=== PATIENT | male | born 1965 | race African-American/Black ===

== ENCOUNTER 2019-02-20 13:03 | Emergency (ER) | payer MEDICAID ==
[~2019-02-20] VITALS: Ht 185.4 cm; Wt 116.0 kg
[~2019-02-20 13:03] MED LIST: ALLO100T PO; LOSA100T14 PO; NAPR-681 PO; P20 PO
[2019-02-20 14:13] LABS: BASOPHILS % 0.5 % (0.0-2.0); EOSINOPHILS % 2.9 % (0.0-5.0); HEMATOCRIT. 41.3 % (42.0-52.0); HEMOGLOBIN. 14.3 g/dL (14.0-18.0); LYMPHOCYTES % 24.5 % (20.0-50.0); MEAN CORPUSCULAR HEMOGLOBIN 28.3 pg (28.0-32.0); MEAN CORPUSCULAR VOLUME 81.8 fL (80.0-94.0); MEAN PLATELET VOLUME 9.5 fl (7.4-10.4); MONOCYTES % 14.7 % (2.0-8.0); NEUTROPHILS % 57.4 % (40.0-76.0); PLATELET 341 x1000/uL (130-400); RED BLOOD CELL COUNT 5.06 mill/uL (4.7-6.1); RED CELL DISTRIBUTION WIDTH 13.7 % (11.6-14.6)
[2019-02-20 14:27] LABS: CLARITY URINE CLEAR (CLEAR); COLOR URINE YELLOW (YELLOW); KETONES URINE TRACE (NEGATIVE); LEUKOCYTE ESTERASE URINE NEGATIVE (NEGATIVE); NITRITE URINE NEGATIVE (NEGATIVE); OCCULT BLOOD URINE NEGATIVE (NEGATIVE); PH URINE 5.5 (4.5-8.0); PROTEIN URINE NEGATIVE (NEGATIVE); SPECIFIC GRAVITY URINE 1.023 (1.005-1.030)
[2019-02-20] MEDS ORDERED: IBUPROFEN 600MG TABLET PO ONE (14:30)
[2019-02-20] MEDS ORDERED: HYDROCODONE/ACETAMINOPHEN 5/325MG TABLET PO ONE (14:30)
[2019-02-20 14:51] LABS: *AMPHETAMINES SCREEN URINE NEGATIVE (NEGATIVE); *BARBITURATES SCREEN URINE NEGATIVE (NEGATIVE); *BENZODIAZEPINES SCREEN URINE NEGATIVE (NEGATIVE); *COCAINE SCREEN URINE NEGATIVE (NEGATIVE); METHADONE URINE SCREEN NEGATIVE (NEGATIVE); OPIATES URINE SCREEN NEGATIVE (NEGATIVE)
[2019-02-20 14:52] LABS: CANNABINOID URINE SCREEN PRESUMTIVE POSITIVE (NEGATIVE); PHENCYCLIDINE URINE SCREEN NEGATIVE (NEGATIVE)
[2019-02-20 16:48] LABS: CHLORIDE 107 mEq/L (98-107)
[2019-02-20 16:51] LABS: INR 1.1; PARTIAL THROMBOPLASTIN TIME 30.4 sec (23.4-31.0); PROTHROMBIN TIME 11.3 sec (9.6-11.0)
[2019-02-20] MEDS ORDERED: HYDRALAZINE 20MG/ML VIAL IV ONE (18:00)
[2019-02-20 19:00] VITALS: BP 148/89
== END 2019-02-20 19:01 | disposition home or self-care (01) ==
LOC: ER 13:03
DX: M10.9 Gout, unspecified (principal); M70.21 Olecranon bursitis, right elbow; I10 Essential (primary) hypertension; Z88.1 Allergy status to other antibiotic agents; Z88.2 Allergy status to sulfonamides
CPT/HCPCS: 36415; 71045; 73080; 73630; 80053; 80305; 81003; 82962; 83735; 83880; 84484; 84550; 85025; 85610; 85730; 93005; 96374; 99284; J0360

== ENCOUNTER 2020-03-03 12:10 | Emergency (ER) | payer MEDICAID ==
[~2020-03-03] VITALS: Ht 185.4 cm; Wt 120.0 kg
[~2020-03-03 12:10] MED LIST changes: -LOSA100T14 PO; +LOSA100T32 PO
[2020-03-03 15:00] VITALS: BP 191/110
[2020-03-03] MEDS ORDERED: IBUPROFEN 800MG TABLET PO ONE (15:00)
== END 2020-03-03 17:02 | disposition home or self-care (01) ==
LOC: ER 12:10
DX: S62.646A Nondisplaced fracture of proximal phalanx of right little finger, initial encounter for closed fracture (principal); S60.221A Contusion of right hand, initial encounter; I10 Essential (primary) hypertension; M10.9 Gout, unspecified; Z98.890 Other specified postprocedural states; Z88.3 Allergy status to other anti-infective agents; Z88.2 Allergy status to sulfonamides; W22.01XA Walked into wall, initial encounter; Y93.89 Activity, other specified; Y92.018 Other place in single-family (private) house as the place of occurrence of the external cause
CPT/HCPCS: 29130; 73130; 99283

== ENCOUNTER 2021-04-06 12:48 | Emergency (ER) | payer MEDICAID ==
[~2021-04-06] VITALS: Ht 182.9 cm; Wt 116.0 kg
[2021-04-06] MEDS ORDERED: HYDROCODONE/ACETAMINOPHEN 5/325MG TABLET PO STA (13:21)
[2021-04-06] MEDS ORDERED: IBUPROFEN 600MG TABLET PO STA (13:21)
[2021-04-06] MEDS ORDERED: COLCHICINE 0.6MG TABLET PO ONE (13:30)
[2021-04-06] MEDS ORDERED: CLONIDINE 0.2MG TABLET PO ONE (13:30)
[2021-04-06 14:27] LABS: BASOPHILS % 0.7 % (0.0-2.0); EOSINOPHILS % 3.6 % (0.0-5.0); HEMATOCRIT. 45.1 % (42.0-52.0); HEMOGLOBIN. 15.6 g/dL (14.0-18.0); LYMPHOCYTES % 28.1 % (20.0-50.0); MEAN CORPUSCULAR HEMOGLOBIN 29.4 pg (28.0-32.0); MEAN CORPUSCULAR VOLUME 84.6 fL (80.0-94.0); MEAN PLATELET VOLUME 9.8 fl (7.4-10.4); MONOCYTES % 10.2 % (2.0-8.0); NEUTROPHILS % 57.4 % (40.0-76.0); PLATELET 236 x1000/uL (130-400); RED BLOOD CELL COUNT 5.33 mill/uL (4.7-6.1)
[2021-04-06 14:28] LABS: CHLORIDE 108 mEq/L (98-107)
[2021-04-06] MEDS ORDERED: COLC0.6C3 MT (15:00)
[2021-04-06] MEDS ORDERED: ALLO100T MT (15:00)
[2021-04-06] MEDS ORDERED: HYDR-4346 MT (15:00)
[2021-04-06 15:08] VITALS: BP 191/128
== END 2021-04-06 15:21 | disposition home or self-care (01) ==
LOC: ER 12:48
DX: I11.0 Hypertensive heart disease with heart failure (principal); I50.9 Heart failure, unspecified; M10.041 Idiopathic gout, right hand; Z88.2 Allergy status to sulfonamides; Z88.3 Allergy status to other anti-infective agents
CPT/HCPCS: 36415; 73130; 80053; 83880; 84484; 85025; 93005; 99285